=== PATIENT | female | born 1960 | race Caucasian/White ===

== ENCOUNTER 2025-04-12 11:51 | Day surgery (SDC) | payer MEDICARE, BC, SELFPAY ==
[2025-04-12] MEDS: LACTATED RINGERS 1000ML 1,000 ML 50 ML IV ×2 (12:19→12:41)
[2025-04-12 12:28] VITALS: BP 118/82; PULSE 69; RESP 17; TEMP 37.1; O2SAT 96
--- NOTE | 2025-04-12 12:29 | P.PNANES_ITS ---
[facility] Disclaimer: The information contained in this section may have been updated after the patient was seen, as this information can be updated by other users. Medical History Sjogren syndrome Reactive gastropathy IBS (irritable bowel syndrome) Hyperlipidemia Hiatal hernia Hemorrhoids GERD (gastroesophageal reflux disease) COPD (chronic obstructive pulmonary disease) Asthma Surgical History No significant past surgical history Family History Other Family history non-contributory Social History Smoking Status: Never smoker alcohol intake: current alcohol intake frequency: a few times a week substance use type: denies use current occupational status: retired Travel in the last 8 weeks?: None Have you lived/traveled outside US in past 30 days?: No Contact w/someone who lives/traveled outside US past 30 days?: No Exposure to someone with infectious disease in past 14 days?: No Do you have a fever (greater than 100.4 F or 38 C)?: No Have you tested positive for COVID-19?: No Exposed to someone with COVID-19 in past 14 days?: No Do you have a sore throat?: No Do you have a cough?: No Do you have any weakness?: No Do you have any diarrhea?: No Are you experiencing any unusual bleeding?: No Do you have any muscle aches/pain?: No Do you have any abdominal pain?: No Are you experiencing loss of taste or smell?: No [facility] Anesthesia Checklist Patient Identification Patient Identification: Arm Band Structural Data Admitted From: Home Planned Operative Procedure/s: EGD/Colonoscopy Consent for Planned Operative Procedure(s) Verified: Yes Verified Documents: Surgical Consent and History and Physical NPO Status Verified Time NPO: 00:00 Additional verifications Anesthesia Reactions: No Airway Assessment Mallampati Score:: Class II C-Spine Mobility Assessed: Yes TMJ Mobility Assessed: Yes Dentition: Good Dentition Neurological Assessment Level of Consciousness: Awake, Alert and Appropriate Anesthesia Plan Anesthesia Risk discussed: Yes Anesthesia Plan: Verified ASA Class: II Anesthesia Type: MAC
[2025-04-12 12:37] VITALS: BMI 22.6
[2025-04-12 14:14] VITALS: BP 98/64; PULSE 72; RESP 18; O2SAT 96
[2025-04-12 14:24] VITALS: BP 96/57; PULSE 63; RESP 18; O2SAT 99
[2025-04-12 14:34] VITALS: BP 113/76; PULSE 64; RESP 16; O2SAT 99
[2025-04-12 14:38] VITALS: BP 120/61; PULSE 66; RESP 16; O2SAT 99
--- NOTE | 2025-04-12 21:59 | EXP.HP ---
History of Present Illness *Admission Date: 04/12/25 *History of present illness: Mrs. Malone is a 65-year-old female who is here for reestablishment of care and her last office visit was November 2019 (greater than 3 years ago). The patient presently describes left upper quadrant abdominal pain that can radiate into the left shoulder blade. This often occurs in the evening after eating bulky foods such as hamburger. She does have a lot of bloating and belching. She does have early satiety. She also has some chronic constipation. She does have a history of heterozygous alpha 1 antitrypsin deficiency (phenotype MZ). She has had normal liver chemistries. She did undergo panendoscopy with hi in September 2019. At that time her upper endoscopy showed a moderate-sized 6 cm hiatal hernia and a duodenal polyp (tubular adenoma). Her colonoscopy revealed 2 polyps (small serrated adenomas x 2) which were removed. The patient had been on Motegrity at that time but is not on this presently. [facility] Disclaimer: The information contained in this section may have been updated after the patient was seen, as this information can be updated by other users. Medical History Sjogren syndrome Reactive gastropathy IBS (irritable bowel syndrome) Hyperlipidemia Hiatal hernia Hemorrhoids GERD (gastroesophageal reflux disease) COPD (chronic obstructive pulmonary disease) Asthma Surgical History No significant past surgical history Family History Other Family history non-contributory Social History Smoking Status: Never smoker alcohol intake: current alcohol intake frequency: a few times a week substance use type: denies use current occupational status: retired Travel in the last 8 weeks?: None Have you lived/traveled outside US in past 30 days?: No Contact w/someone who lives/traveled outside US past 30 days?: No Exposure to someone with infectious disease in past 14 days?: No Do you have a fever (greater than 100.4 F or 38 C)?: No Have you tested positive for COVID-19?: No Exposed to someone with COVID-19 in past 14 days?: No Do you have a sore throat?: No Do you have a cough?: No Do you have any weakness?: No Do you have any diarrhea?: No Are you experiencing any unusual bleeding?: No Do you have any muscle aches/pain?: No Do you have any abdominal pain?: No Are you experiencing loss of taste or smell?: No Review of Systems Review of Systems Review of systems (narrative): Negative *Cardiovascular Comments: Negative *Gastrointestinal Comments: Negative *Genitourinary Comments: Negative *Musculoskeletal Comments: Negative *Neurologic Comments: Negative Meds Home Medications and Allergies Home Medications ?Medication ?Instructions ?Recorded ?Confirmed ?Type albuterol sulfate 90 mcg/actuation 2 inh inhalation NEEDED PRN sob 02/01/25 04/12/25 History aerosol inhaler cyclosporine 0.05 % eye drops in a 1 drp ophthalmic (eye) BID 02/01/25 04/12/25 History dropperette (Restasis) pilocarpine HCl 5 mg tablet 5 mg PO TID 02/01/25 04/12/25 History rosuvastatin 10 mg tablet 10 mg PO .everyotherday 02/01/25 04/12/25 History New Prescriptions to Start Prescriptions: Allergies Allergy/AdvReac Type Severity Reaction Status Date / Time No Known Allergies Allergy Verified 04/12/25 12:23 Exam Data for Last 24 hours Vital signs and Labs for Last 24 Hours: Temp Pulse Resp BP Pulse Ox O2 Del Method 98.8 F 66 16 120/61 99 Room Air 04/12/25 12:28 04/12/25 14:38 04/12/25 14:38 04/12/25 14:38 04/12/25 14:38 04/12/25 14:38 I & O for Last 24 hours: Intake & Output 04/09/25 04/10/25 04/11/25 04/12/25 23:59 23:59 23:59 23:59 Weight 128 lb *Routine HEENT Exam Head: Present normocephalic Eye: Present EOMI and PERRL ENT: Present mucous membranes moist *Routine Neck Exam Neck: Present supple *Routine Respiratory Exam Respiratory: Present CTA bilaterally *Routine Cardiovascular Exam Cardiovascular: Present RRR *Routine Abdominal Exam Abdominal: Present soft and normoactive bowel sounds; Absent tenderness *Routine Rectal Exam Rectal:: deferred *Routine Genitalia Exam Genitalia:: deferred *Routine Extremities Exam Extremities: Absent cyanosis, clubbing or edema *Routine Skin Exam Skin: Present warm; Absent rash *Routine Neurological Exam Neurological: Present alert and oriented X3 Assessment and Plan *Assessment and plan (1) Left upper quadrant abdominal pain: Status: Acute Category: Medical Code(s): R10.12 - Left upper quadrant pain (2) Splenic flexure syndrome: Status: Acute Category: Medical Code(s): K63.9 - Disease of intestine, unspecified (3) Bloating: Status: Acute Category: Medical Code(s): R14.0 - Abdominal distension (gaseous) (4) Hiatal hernia: Status: Acute Category: Medical Code(s): K44.9 - Diaphragmatic hernia without obstruction or gangrene (5) Personal history of adenomatous and serrated colon polyps: Status: Acute Category: Medical Code(s): Z86.0101 - Personal history of adenomatous and serrated colon polyps (6) Duodenal adenoma: Status: Acute Category: Medical Code(s): D13.2 - Benign neoplasm of duodenum Plan A/P: 1., Prior history of duodenal adenoma, bloating, fullness and some dysphagia for upper endoscopy, left upper quadrant abdominal pain, splenic flexure syndrome and personal history of adenomatous colon polyps with colonoscopy is the preprocedural diagnosis. The patient will be anesthetized/sedated using MAC sedation. The patient has been seen and examined. Cardiac and lung assessment prior to the examination is stable. Proceed with planned EGD and colonoscopy.
--- NOTE | 2025-04-12 22:04 | HMH.PROCNOTE ---
[facility] Procedure Note Date: 04/12/25 Time: 22:04 Procedure Note:: Upper Endoscopy Procedure Report: Esophagogastroduodenoscopy with cold biopsies and TTS balloon dilation Endoscopost: Ketan Marino II, MD Referring Physician: Lena Faith Date of Procedure: April 12, 2025 Equipment: Olympus GIF 190 standard upper endoscope Sedation: MAC sedation Indications: Mrs. Malone is a 65-year-old female who is here for diagnostic EGD and colonoscopy. The patient presently describes left upper quadrant abdominal pain that can radiate into the left shoulder blade. This often occurs in the evening after eating bulky foods such as hamburger. She does have a lot of bloating and belching and occasional chest pressure. She also has some chronic constipation. She does have a history of heterozygous alpha 1 antitrypsin deficiency (phenotype MZ). She has had normal liver chemistries. She did undergo panendoscopy with me in September 2019. At that time her upper endoscopy showed a moderate-sized 6 cm hiatal hernia and a duodenal polyp (tubular adenoma). Her colonoscopy revealed 2 polyps (small serrated adenomas x 2) which were removed. The patient had been on Motegrity at that time but is not on this presently. Procedure: Prior to the procedure, a history and physical exam was performed, and patient's medications and allergies were reviewed. The risks, benefits and alternatives of the sedation and procedure were discussed with the patient. All questions were answered and informed consent was obtained. The patient was brought to the procedure room. Patient identification and proposed procedure were verified by the physician and the nurse. The patient was placed in a left lateral decubitus position and the scope was passed under direct vision. Throughout the procedure, the patient's blood pressure, pulse, and oxygen saturations were monitored continuously. The upper GI endoscopy was accomplished without difficulty. The patient tolerated the procedure well. Findings: The scope was passed directly into the upper esophagus and advanced to the fourth portion of duodenum and proximal jejunum. Cold biopsies were taken x 4 of the proximal jejunum for disaccharidase assay. The proximal jejunum, post bulbar duodenum, ampulla and duodenal bulb were normal with normal mucosa and conniventes. The scope was withdrawn through a normal duodenal bulb and pylorus into the stomach. There was very mild linear antral gastropathy and very mild proximal gastric atrophy. Biopsies were taken from the lesser curvature. Most notable was a large 7 to 8 cm hiatal hernia/paraesophageal type hiatal hernia. The diaphragmatic hiatus was at 40 cm. The top of the gastric folds were at 32/33 cm from the incisors. This was paraesophageal and without Hank's erosions. The scope was then withdrawn into the esophagus. There was no evidence of reflux esophagitis or Hernandez's. There were strong tertiary contractions and presbyesophagus. The entire esophagus was dilated to 60 Swedish/20 mm with a TTS has been seen. There are some mild resistance at the cricopharyngeus. The remainder of the esophageal mucosa was normal. Impression: 1. Larger paraesophageal type hiatal hernia (7 to 8 cm) 2. Mild antral gastropathy Plan: The patient is clearly symptomatic from the larger hiatal hernia which is paraesophageal and getting pain that radiates to her left shoulder blade. I do feel that her clinical symptoms and findings suggest that this is a large component of her symptoms. I am going to make the referral to Dr. Erasto Watkins for consideration of robotic hiatal hernia repair. I will discuss the findings with the patient and family and follow-up the biopsies. I will proceed with diagnostic colonoscopy.
--- NOTE | 2025-04-12 22:13 | P.PCN_ITS ---
[facility] Procedure Note Date: 04/12/25 Time: 22:13 Procedure Note:: Colonoscopy Procedure Report: Colonoscopy with cold biopsies Endoscopist: Ketan Marino II, MD Referring physician: Lena Faith PA-C, [address] [facility] , [place] [address] Date of Procedure: April 12, 2025 Equipment: Olympus 190 variable stiffness pediatric colonoscope Sedation: MAC sedation Indication: Mrs. Malone is a 65-year-old female who is here for surveillance colonoscopy. Her last colonoscopy in September 2019 revealed 2 polyps (small serrated adenomas x 2) which were removed. She is overdue for surveillance. She does have a lot of bloating, trapped gas and obstipation/incomplete defecation. She does have some bowel irregularity. She reports no rectal bleeding or weight loss. She reports no history of colon cancer. The patient had been on Motegrity at that time but is not on this presently. Procedure: Prior to the procedure, a history and physical exam was performed, and patient's medications and allergies were reviewed. The risks, benefits and alternatives of the sedation and procedure were discussed with the patient. All questions were answered and informed consent was obtained. The patient was brought to the procedure room. Patient identification and proposed procedure were verified by the physician and the nurse. The patient was placed in a left lateral decubitus position and the scope was passed under direct vision. Throughout the procedure, the patient's blood pressure, pulse, and oxygen saturations were monitored continuously. The colonoscopy was accomplished without difficulty. The patient tolerated the procedure well. Findings: On digital rectal examination there was normal rectal tone. There were no external hemorrhoids. The colonoscope was introduced through the anal canal to the rectum and advanced to the cecum. The ileocecal valve and appendiceal orifice were identified. The scope was advanced a short distance into the ileum which appeared grossly normal. The scope was then withdrawn into the colon. The cecum, ascending, transverse, descending, sigmoid and rectum were grossly normal. Random colon biopsies were taken from the right colon with normal microscopic colitis. There were no mucosal abnormalities identified. Upon retroflexion within the rectum there were grade 1-2 internal hemorrhoids. The preparation was excellent throughout with Bee Branch Preparation Score of 9. The cecal time was 12 minutes. Impression: 1. Normal colonoscopy with intubation of the terminal ileum 2. Grade 1-2 internal hemorrhoids Plan: I do feel that the patient has incomplete defecation/outlet dysfunction constipation and has failed several laxatives. I am going to refer the patient for pelvic floor physical therapy. I would recommend that she continue the fiber bowel regimen (combined MiraLAX plus Citrucel). She will not require repeat surveillance colonoscopy with changes ACS guidelines.
[2025-04-18 16:12] LABS: Disclaimer Notes (.); Interpretation Notes (.); Lactase 19.56 (>/= 14.0); Maltase 265.28 (>/= 110.0); Palatinase 29.6 (>/= 8.5); Reference Notes (.); Sucrase 91.03 (>/= 25.0)
== END 2025-04-12 14:40 | disposition home or self-care (01) ==
PROVIDERS: PCP Physician Assistant Medical; Visit Provider Internal Medicine Gastroenterology
PROC: 0DJ08ZZ Inspection of Upper Intestinal Tract, Via Natural or Artificial Opening Endoscopic (ICD-10-PCS; CPT 45378; principal; 2025-04-12 13:30)
DX: K29.70 Gastritis, unspecified, without bleeding (principal); D13.2 Benign neoplasm of duodenum; K64.0 First degree hemorrhoids; K44.9 Diaphragmatic hernia without obstruction or gangrene; K58.1 Irritable bowel syndrome with constipation; K21.9 Gastro-esophageal reflux disease without esophagitis; R10.12 Left upper quadrant pain; K31.9 Disease of stomach and duodenum, unspecified; R14.0 Abdominal distension (gaseous); J44.9 Chronic obstructive pulmonary disease, unspecified; Z86.0101 Personal history of adenomatous and serrated colon polyps; Z79.899 Other long term (current) drug therapy
CPT/HCPCS: 43239; 43249; 45380; 82657; C1726; J2704; J7120